=== PATIENT | male | born 1975 | race Caucasian/White ===

== ENCOUNTER 2016-05-24 11:30 | Inpatient (IN) | payer OTHER ==
[2016-05-24 12:34] VITALS: BMI 33.1
--- NOTE | 2016-05-24 15:46 | HP ---
CIWA Score - CIWA Score Nausea/Vomitin Muscle Tremors: 3 Anxiety: 3 Agitation: 3 Paroxysmal Sweats: 3 Orientation: 0-Oriented Tacttile Disturbances: 2-Mild Itch/Numbness/Burn Auditory Disturbances: 0-None Visual Disturbances: 0-None Headache: 0-None Present CIWA-Ar Total Score: 17 Admission ROS BHS - HPI Chief Complaint: I need to stop alcohol and cannabis Allergies/Adverse Reactions: Allergies Allergy/AdvReac Type Severity Reaction Status Date / Time No Known Allergies Allergy Verified 05/24/16 15:31 History of Present Illness: 41 y/o m pt with a h/o chronic etoh dep and cannabis abuse and cannabis dep. Exam Limitations: No Limitations - Ebola screening Have you traveled outside of the country in the last 21 days: No Have you had contact with anyone from an Ebola affected area: No Have you been sick,other than usual withdrawal symptoms: No Do you have a fever: No - Review of Systems Constitutional: Malaise, Night Sweats, Changes in sleep EENT: reports: No Symptoms Reported Respiratory: reports: Shortness of Breath Cardiac: reports: Irregular Heart Rate GI: reports: Nausea : reports: Frequency Musculoskeletal: reports: Muscle Pain Integumentary: reports: Sweating Neuro: reports: Tremors Endocrine: reports: Increased Hunger, Increased Thirst, Increased Urine Hematology: reports: No Symptoms Reported Psychiatric: reports: Agitated, Anxious, Depressed Other Systems: Reviewed and Negative Patient History - Patient Medical History Hx Anemia: No Hx Asthma: No Hx Chronic Obstructive Pulmonary Disease (COPD): No Hx Cancer: No Hx Cardiac Disorders: No Hx Congestive Heart Failure: No Hx Hypertension: No Hx Hypercholesterolemia: No Hx Pacemaker: No HX Cerebrovascular Accident: No Hx Seizures: No Hx Dementia: No Hx Diabetes: Yes (Type II) Hx Gastrointestinal Disorders: No Hx Liver Disease: No Hx Genitourinary Disorders: No Hx Sexually Transmitted Disorders: No Hx Renal Disease (ESRD): No Hx Thyroid Disease: No Hx Human Immunodeficiency Virus (HIV): No (NEGATIVE HX) Hx Hepatitis C: No Hx Depression: Yes Hx Suicide Attempt: No ([place] train tracks [place] 1994) Hx Bipolar Disorder: Yes (on Seroquel, depakote and welbutrin) Hx Schizophrenia: No - Patient Surgical History Past Surgical History: No Hx Neurologic Surgery: No Hx Cataract Extraction: No Hx Cardiac Surgery: No Hx Lung Surgery: No Hx Breast Surgery: No Hx Breast Biopsy: No Hx Abdominal Surgery: No Hx Appendectomy: No Hx Cholecystectomy: No Hx Genitourinary Surgery: No Hx Orthopedic Surgery: No Anesthesia Reaction: No - PPD History Previous Implant?: Yes Documented Results: Negative w/proof Implanted On Prior [facility] Admission?: Yes Date: 04/12/16 Results: 0 MM - Reproductive History Patient is a Female of Child Bearing Age (11 -55 yrs old): No - Smoking Cessation Smoking history: Current every day smoker Have you smoked in the past 12 months: Yes Aproximately how many cigarettes per day: 20 If you are a former smoker, when did you quit?: 15 YRS AGO Hx Chewing Tobacco Use: No Initiated information on smoking cessation: Yes 'Breaking Loose' booklet given: 05/24/16 - Substance & Tx. History Hx Alcohol Use: Yes Hx Substance Use: Yes Substance Use Type: Alcohol, Marijuana Hx Substance Use Treatment: Yes - Substances Abused Alcohol Route: Oral Frequency: Daily Amount used: 3 6PKS BEER Age of first use: 15 Date of Last Use: 05/24/16 Marijuana/Hashish Route: Smoking Frequency: Daily Amount used: 8 JOINTS Age of first use: 17 Date of Last Use: 05/24/16 Family Disease History - Family Disease History Family Disease History: Respiratory: Mother (asthma ) Admission Physical Exam BHS - Vital Signs Vital Signs: Vital Signs - 24 hr 05/24/16 12:32 Temperature 96.7 F L Pulse Rate 111 H Respiratory 18 Rate Blood Pressure 138/84 41 y/o m pt aox3 in nad , diaphoretic, anxious but cooperating with exam. - Physical General Appearance: Yes: Appropriately Dressed, Obese, Tremorous, Irritable, Sweating, Anxious HEENTM: Yes: EOMI, Hearing grossly Normal, Normocephalic, Normal Voice, ELSA Respiratory: Yes: Chest Non-Tender, Lungs Clear, Normal Breath Sounds, No Respiratory Distress Neck: Yes: Supple, Trachea in good position Breast: Yes: Within Normal Limits Cardiology: Yes: Regular Rhythm, S1, S2, Tachycardia Abdominal: Yes: Non Tender, Flat, Soft, Increased Bowel Sounds Genitourinary: Yes: Frequency Back: Yes: Decreased Range of Motion Musculoskeletal: Yes: Back pain Extremities: Yes: Tremors Neurological: Yes: glue maker II-XII NML intact, Fully Oriented, Alert, Normal Response Integumentary: Yes: Diaphoresis Lymphatic: Yes: Within Normal Limits - Diagnostic (1) Alcohol dependence with uncomplicated withdrawal Current Visit: Yes Status: Chronic Comment: . (2) Bipolar 1 disorder Current Visit: Yes Status: Chronic Comment: . (3) Cannabis dependence, uncomplicated Current Visit: Yes Status: Chronic (4) Nicotine dependence Current Visit: Yes Status: Chronic Qualifiers: Nicotine product type: cigarettes Substance use status: uncomplicated Qualified Code(s): F17.210 - Nicotine dependence, cigarettes, uncomplicated Comment: . (5) Diabetes mellitus type 2 in obese Current Visit: Yes Status: Chronic Comment: . (6) Obesity Current Visit: Yes Status: Chronic Qualifiers: Obesity severity: unspecified obesity severity Cleared for Admission S - Detox or Rehab [facility] Level of Care: Medically Managed Detox Regimen/Protocol: Librium [facility] Breath Alcohol Content Breath Alcohol Content: 0.045 Urine Drug Screen - Results Drug Screen Negative: No Urine Drug Screen Results: THC-Marijuana, TCA-Tricyclic Antidepress
[2016-05-24] MEDS ORDERED: diphenhydrAMINE HCL 50 MG CAPSULE PO PRN (16:01)
[2016-05-24] MEDS ORDERED: chlordiazePOXIDE HCL 25 MG CAPSULE PO PRN (16:01)
[2016-05-24] MEDS ORDERED: hydrOXYzine PAMOATE 25 MG CAPSULE (FP) PO PRN (16:01)
[2016-05-24] MEDS ORDERED: P-EPHED 60MG/TRIPROLIDI 2.5MG TABLET PO PRN (16:01)
[2016-05-24] MEDS ORDERED: NICOTINE POLACRILEX 4 MG GUM BC PRN (16:01)
[2016-05-24] MEDS ORDERED: MENTHOL/PHENOL 1 EACH UD MM PRN (16:01)
[2016-05-24] MEDS ORDERED: MAG HYDROX/AL HYDROX/SIMETH 30 ML UNIT-DOSE CUP PO PRN (16:01)
[2016-05-24] MEDS ORDERED: LOPERAMIDE HCL 2 MG CAPSULE PO PRN (16:01)
[2016-05-24] MEDS ORDERED: MAGNESIUM CITRATE 300 ML BOTTLE PO PRN (16:01)
[2016-05-24] MEDS ORDERED: ACETAMINOPHEN 325 MG TABLET (FP) PO PRN (16:01)
[2016-05-24] MEDS ORDERED: guaiFENesin/D-METHORPHAN HB 10 ML UNIT-DOSE CUPS PO PRN (16:01)
[2016-05-24] MEDS ORDERED: IBUPROFEN 400 MG TABLET (FP) PO PRN (16:01)
[2016-05-24] MEDS: chlordiazePOXIDE HCL 25 MG CAPSULE PO SCH ×2 (18:01→22:14)
[2016-05-24 20:54] LABS: URINE APPEARANCE CLEAR; URINE BILIRUBIN NEGATIVE (NEGATIVE); URINE BLOOD NEGATIVE (NEGATIVE); URINE COLOR YELLOW; URINE GLUCOSE (UA) NEGATIVE (NEGATIVE); URINE KETONE 1+ (NEGATIVE); URINE LEUK ESTERASE NEGATIVE (NEGATIVE); URINE NITRITE NEGATIVE (NEGATIVE); URINE UROBILINOGEN NEGATIVE E.U./dl (0.2-1.0)
[2016-05-24 20:57] LABS: URINE PROTEIN 1+ (NEGATIVE)
[2016-05-24 21:07] LABS: URINE BACTERIA RARE /hpf (NONE SEEN); URINE HYALINE CAST 7 /lpf; URINE MUCUS MANY; URINE RBC <1 /hpf (0-3); URINE WBC 1 /hpf (3-5)
[2016-05-24] MEDS: THIAMINE HCL 100 MG TABLET (FP) PO SCH (22:14)
[2016-05-24] MEDS: metFORMIN HCL 500 MG TABLET (FP) PO SCH (23:55)
[2016-05-25] MEDS: chlordiazePOXIDE HCL 25 MG CAPSULE PO SCH ×4 (06:22→22:05)
[2016-05-25] MEDS: metFORMIN HCL 500 MG TABLET (FP) PO SCH ×2 (07:05→17:14)
[2016-05-25] MEDS: INSULIN SLIDING SCALE (NOVOLOG) 1 VIAL SQ SCH ×2 (07:05→17:08)
[2016-05-25] MEDS: sitaGLIPtin PHOSPHATE 100 MG TABLET (FP) PO SCH (07:05)
[2016-05-25 10:10] LABS: MCH 33.2 pg (25.7-33.7); MCHC 33.9 g/dl (32.0-35.9); MEAN CELL VOLUME 97.7 fl (80-96); MEAN PLT VOLUME 8.7 fl (7.5-11.1); PLATELET COUNT 328 K/MM3 (134-434); WHITE BLOOD COUNT 13.5 K/mm3 (4.0-10.0)
[2016-05-25] MEDS: NICOTINE 21 MG/24 HOURS TOPICAL PATCH TD SCH (10:11)
[2016-05-25] MEDS: PRENATAL VITAMINS W/ FOLIC ACID TABLET (FP) PO SCH (10:11)
[2016-05-25 10:21] LABS: ALBUMIN 4.4 g/dl (3.4-5.0); ANION GAP 18 (8-16); CALCIUM 9.7 mg/dL (8.5-10.1); CO2 19 mmol/L (21-32); GLUCOSE,RANDOM 124 mg/dL (74-106)
[2016-05-25 10:25] LABS: ALK PHOS 96 U/L (45-117); BILIRUBIN,TOTAL 0.2 mg/dL (0.2-1.0); CREATININE 0.7 mg/dL (0.7-1.3); SGOT/AST 46 U/L (15-37); SGPT/ALT 65 U/L (12-78); TOT PROT 7.5 g/dl (6.4-8.2)
--- NOTE | 2016-05-25 11:23 | PN ---
S CIWA - CIWA Score Nausea/Vomitin Muscle Tremors: 3 Anxiety: 2 Agitation: 3 Paroxysmal Sweats: 2 Orientation: 0-Oriented Tacttile Disturbances: 0-None Auditory Disturbances: 0-None Visual Disturbances: 2-Mild Sensitivity Headache: 0-None Present CIWA-Ar Total Score: 14 S Progress Note (SOAP) Objective: 05/25/16 11:22 Vital Signs - 24 hr 05/24/16 05/24/16 05/24/16 12:32 17:57 22:24 Temperature 96.7 F L 98.1 F 97.5 F L Pulse Rate 111 H 102 H 96 H Respiratory 18 20 20 Rate Blood Pressure 138/84 128/86 142/83 05/25/16 05/25/16 05/25/16 00:30 03:30 06:51 Temperature 97.3 F L Pulse Rate 72 Respiratory 18 18 18 Rate Blood Pressure 118/72 05/25/16 09:47 Temperature 98.1 F Pulse Rate 92 H Respiratory 18 Rate Blood Pressure 128/69 Laboratory Tests 05/24/16 05/24/16 05/25/16 15:40 19:00 06:00 WBC 13.5 H D RBC 4.59 Hgb 15.2 Hct 44.9 MCV 97.7 H MCHC 33.9 RDW 13.0 Plt Count 328 MPV 8.7 Sodium Potassium Chloride Carbon Dioxide Anion Gap BUN Creatinine Creat Clearance w eGFR POC Glucometer 122 Random Glucose Calcium Total Bilirubin AST ALT Alkaline Phosphatase Total Protein Albumin Urine Color Yellow Urine Appearance Clear Urine pH 5.0 Ur Specific [place] 1.025 Urine Protein 1+ H Urine Glucose (UA) Negative Urine Ketones 1+ H Urine Blood Negative Urine Nitrite Negative Urine Bilirubin Negative Urine Urobilinogen Negative Ur Leukocyte Esterase Negative Urine RBC <1 Urine WBC 1 Ur Epithelial Cells Rare Urine Bacteria Rare Hyaline Casts 7 Urine Mucus Many 05/25/16 05/25/16 06:00 06:20 WBC RBC Hgb Hct MCV MCHC RDW Plt Count MPV Sodium 136 Potassium 4.3 Chloride 99 Carbon Dioxide 19 L Anion Gap 18 H BUN 13 D Creatinine 0.7 Creat Clearance w eGFR > 60 POC Glucometer 128 Random Glucose 124 H D Calcium 9.7 Total Bilirubin 0.2 D AST 46 H D ALT 65 Alkaline Phosphatase 96 Total Protein 7.5 Albumin 4.4 Urine Color Urine Appearance Urine pH Ur Specific [place] Urine Protein Urine Glucose (UA) Urine Ketones Urine Blood Urine Nitrite Urine Bilirubin Urine Urobilinogen Ur Leukocyte Esterase Urine RBC Urine WBC Ur Epithelial Cells Urine Bacteria Hyaline Casts Urine Mucus Assessment: 05/25/16 11:22 ongoing withdrawal leukocytosis Plan: fu labs continue detox protocol
[2016-05-25] MEDS: MAGNESIUM HYDROX 2400MG/30ML ORAL SUSPENSION 30 ML CUP PO PRN (14:10)
[2016-05-25] MEDS ORDERED: DOCUSATE SODIUM 100 MG CAPSULE (FP) PO PRN (14:52)
--- NOTE | 2016-05-25 15:46 | CONSULT ---
[facility] Psychiatric Consult - Data Date of interview: 05/25/16 Admission source: [facility] Identifying data: Readmission to [facility] for this 41 y/o male seeking detox treatment on for alcohol,and marijuana dependence.Patient is single,a father of one,domiciled,unemployed and supported on welfare. Substance Abuse History: - Smoking Cessation. Smoking history: Current every day smoker. Have you smoked in the past 12 months: Yes. Aproximately how many cigarettes per day: 20. If you are a former smoker, when did you quit?: 15 YRS AGO. Hx Chewing Tobacco Use: No. Initiated information on smoking cessation: Yes. 'Breaking Loose' booklet given: 05/24/16. - Substance & Tx. History. Hx Alcohol Use: Yes. Hx Substance Use: Yes. Substance Use Type: Alcohol, Marijuana. Hx Substance Use Treatment: Yes. - Substances Abused. Alcohol. Route: Oral. Frequency: Daily. Amount used: 3 6PKS BEER. Age of first use: 15. Date of Last Use: 05/24/16. Marijuana/Hashish. Route: Smoking. Frequency: Daily. Amount used: 8 JOINTS. Age of first use: 17. Date of Last Use: 05/24/16. Discussed with patient in my interview.He confirmed this pattern of substance abuse. Medical History: Significant for a history of diabetes mellitus and withdrawal- related seizures. Psychiatric History: Patient was admitted to [facility] in [place] ([id number]).Diagnosed with Bipolar Disorder,depressed.Mr Jc is a good and reliable historian.He admits to a history of multiple psychiatric hospitalizations ([facility] and [facility] in [place] in 2013).OPD care is rendered at [facility].Patient is managed by Dr Griffin Mtz on a regimen of paxil 40 mg/day + depakote 1000 mg po bid + seroquel 400 mg po BID.He states that he last took his medications on 05/23/16 prior to this [facility] visit.Noted history of episodes of suicidal ideation but no attempts (patient reports that he [place] jump onto the subway tracks in 1994)." I had strong thoughts and I was hearing voices ".Prompt crisis intervention prevented patient from self-harm.Chronic insomnia is endorsed by patient. Physical/Sexual Abuse/Trauma History: Patient denies. Additional Comment: Urine Drug Screen Results: THC-Marijuana, TCA-Tricyclic Antidepressant.Noted. Mental Status Exam - Mental Status Exam Alert and Oriented to: Time, Place, Person Cognitive Function: Good Patient Appearance: Well Groomed (obese) Mood: Hopeful, Euthymic Affect: Appropriate, Normal Range Patient Behavior: Talkative, Appropriate, Cooperative Speech Pattern: Clear, Appropriate Voice Loudness: Normal Thought Process: Goal Oriented Thought Disorder: Not Present Hallucinations: Denies Suicidal Ideation: Denies Homicidal Ideation: Denies Insight/Judgement: Fair Sleep: Poorly, Difficulty falling asleep (without seroquel) Appetite: Good Muscle strength/Tone: Normal Gait/Station: Normal Psychiatric Findings - Problem List ([place] 1, 2,3) (1) Alcohol dependence with uncomplicated withdrawal Current Visit: Yes Status: Acute Comment: . (2) Cannabis dependence, uncomplicated Current Visit: Yes Status: Acute (3) Nicotine dependence Current Visit: Yes Status: Acute Qualifiers: Nicotine product type: cigarettes Substance use status: uncomplicated Qualified Code(s): F17.210 - Nicotine dependence, cigarettes, uncomplicated Comment: . (4) Bipolar II disorder Current Visit: Yes Status: Chronic Comment: . (5) Diabetes mellitus type 2 in obese Current Visit: Yes Status: Chronic Comment: . (6) Obesity Current Visit: Yes Status: Chronic Qualifiers: Obesity severity: unspecified obesity severity (7) Insomnia Current Visit: Yes Status: Acute - Initial Treatment Plan Initial Treatment Plan: Psychoeducation.Detoxification.Medications :seroquel 200 mg po daily (reduced)/400 mg po hs + paxil 40 mg po daily + depakote 1000 mg po bid.Side effects/benefits of each prescribed drug discussed with the patient.He agrees with this plan of care.Valproic acid level is requested.Labs are reviewed,including liver function tests.Observation.
--- NOTE | 2016-05-25 16:12 | EKG ---
Test Reason : Blood Pressure : / mmHG Vent. Rate : 092 BPM Atrial Rate : 092 BPM P-R Int : 158 ms QRS Dur : 106 ms QT Int : 370 ms P-R-T Axes : 064 068 039 degrees QTc Int : 457 ms NORMAL SINUS RHYTHM NONSPECIFIC ST ABNORMALITY ABNORMAL ECG Confirmed by NOAH KWAN MD ([id number]) on 05/25/2016 4:12:08 PM Referred By: Confirmed By:NOAH KWAN MD
[2016-05-25] MEDS: DIVALPROEX SODIUM 500 MG TABLET E.C. PO SCH (22:05)
[2016-05-25] MEDS: QUEtiapine FUMARATE 400 MG TABLET PO SCH (22:05)
[2016-05-25] MEDS: THIAMINE HCL 100 MG TABLET (FP) PO SCH (22:06)
[2016-05-26] MEDS: chlordiazePOXIDE HCL 25 MG CAPSULE PO SCH ×2 (05:49→10:40)
[2016-05-26] MEDS: INSULIN SLIDING SCALE (NOVOLOG) 1 VIAL SQ SCH ×2 (06:21→16:23)
[2016-05-26] MEDS ORDERED: QUEtiapine FUMARATE 200 MG TABLET PO SCH (10:00)
[2016-05-26 10:24] LABS: BASOPHIL 0.4 % (0-2.0); EOSINOPHIL 5.1 % (0-4.5); MCH 33.6 pg (25.7-33.7); MCHC 34.7 g/dl (32.0-35.9); MEAN CELL VOLUME 96.6 fl (80-96); MEAN PLT VOLUME 8.1 fl (7.5-11.1); NEUTROPHILS 47.4 % (42.8-82.8); PLATELET COUNT 264 K/MM3 (134-434); RDW 13.1 % (11.9-15.9); WHITE BLOOD COUNT 7.2 K/mm3 (4.0-10.0)
[2016-05-26] MEDS: NICOTINE 21 MG/24 HOURS TOPICAL PATCH TD SCH (10:40)
[2016-05-26] MEDS: DIVALPROEX SODIUM 500 MG TABLET E.C. PO SCH ×2 (10:40→22:39)
[2016-05-26] MEDS: PRENATAL VITAMINS W/ FOLIC ACID TABLET (FP) PO SCH (10:40)
[2016-05-26] MEDS: PARoxetine HCL 20 MG TABLET (FP) PO SCH (10:40)
--- NOTE | 2016-05-26 11:18 | PN ---
S CIWA - CIWA Score Nausea/Vomitin Muscle Tremors: 4-Moderate,w/Arms Extend Anxiety: 4-Mod. Anxious/Guarded Agitation: 4-Moderately Restless Paroxysmal Sweats: 3 Orientation: 0-Oriented Tacttile Disturbances: 1-Very Mild Itch/Numbness Auditory Disturbances: 0-None Visual Disturbances: 0-None Headache: 1-Very Mild CIWA-Ar Total Score: 20 BHS Progress Note (SOAP) Subjective: nausea, sweats, interrupted sleep, anxiety, tremors Objective: 05/26/16 11:17 Laboratory Tests 05/24/16 05/24/16 05/25/16 15:40 19:00 06:00 WBC 13.5 H D RBC 4.59 Hgb 15.2 Hct 44.9 MCV 97.7 H MCHC 33.9 RDW 13.0 Plt Count 328 MPV 8.7 Neutrophils % Lymphocytes % Monocytes % Eosinophils % Basophils % Sodium Potassium Chloride Carbon Dioxide Anion Gap BUN Creatinine Creat Clearance w eGFR POC Glucometer 122 Random Glucose Calcium Total Bilirubin AST ALT Alkaline Phosphatase Total Protein Albumin Urine Color Yellow Urine Appearance Clear Urine pH 5.0 Ur Specific [place] 1.025 Urine Protein 1+ H Urine Glucose (UA) Negative Urine Ketones 1+ H Urine Blood Negative Urine Nitrite Negative Urine Bilirubin Negative Urine Urobilinogen Negative Ur Leukocyte Esterase Negative Urine RBC <1 Urine WBC 1 Ur Epithelial Cells Rare Urine Bacteria Rare Hyaline Casts 7 Urine Mucus Many RPR Titer 05/25/16 05/25/16 05/25/16 06:00 06:00 06:20 WBC RBC Hgb Hct MCV MCHC RDW Plt Count MPV Neutrophils % Lymphocytes % Monocytes % Eosinophils % Basophils % Sodium 136 Potassium 4.3 Chloride 99 Carbon Dioxide 19 L Anion Gap 18 H BUN 13 D Creatinine 0.7 Creat Clearance w eGFR > 60 POC Glucometer 128 Random Glucose 124 H D Calcium 9.7 Total Bilirubin 0.2 D AST 46 H D ALT 65 Alkaline Phosphatase 96 Total Protein 7.5 Albumin 4.4 Urine Color Urine Appearance Urine pH Ur Specific [place] Urine Protein Urine Glucose (UA) Urine Ketones Urine Blood Urine Nitrite Urine Bilirubin Urine Urobilinogen Ur Leukocyte Esterase Urine RBC Urine WBC Ur Epithelial Cells Urine Bacteria Hyaline Casts Urine Mucus RPR Titer Nonreactive 05/25/16 05/26/16 05/26/16 16:40 05:48 07:40 WBC 7.2 D RBC 4.36 Hgb 14.6 Hct 42.2 MCV 96.6 H MCHC 34.7 RDW 13.1 Plt Count 264 MPV 8.1 Neutrophils % 47.4 Lymphocytes % 41.3 H Monocytes % 5.8 Eosinophils % 5.1 H Basophils % 0.4 Sodium Potassium Chloride Carbon Dioxide Anion Gap BUN Creatinine Creat Clearance w eGFR POC Glucometer 101 133 Random Glucose Calcium Total Bilirubin AST ALT Alkaline Phosphatase Total Protein Albumin Urine Color Urine Appearance Urine pH Ur Specific [place] Urine Protein Urine Glucose (UA) Urine Ketones Urine Blood Urine Nitrite Urine Bilirubin Urine Urobilinogen Ur Leukocyte Esterase Urine RBC Urine WBC Ur Epithelial Cells Urine Bacteria Hyaline Casts Urine Mucus RPR Titer Assessment: 05/26/16 11:18 withdrawal sx, macrocyotosis Plan: cont detox, fluids
[2016-05-26] MEDS: RANITIDINE HCL 150 MG TABLET (FP) PO SCH ×2 (13:52→22:39)
[2016-05-26] MEDS: chlordiazePOXIDE 5 MG CAPSULE PO SCH ×2 (17:20→22:39)
[2016-05-26] MEDS: sitaGLIPtin PHOSPHATE 100 MG TABLET (FP) PO SCH (18:12)
[2016-05-26] MEDS: metFORMIN HCL 500 MG TABLET (FP) PO SCH ×2 (18:12→22:57)
[2016-05-26] MEDS: QUEtiapine FUMARATE 400 MG TABLET PO SCH (22:39)
[2016-05-26] MEDS: THIAMINE HCL 100 MG TABLET (FP) PO SCH (22:39)
[2016-05-26] MEDS: MAGNESIUM HYDROX 2400MG/30ML ORAL SUSPENSION 30 ML CUP PO PRN (22:43)
[2016-05-27] MEDS: chlordiazePOXIDE 5 MG CAPSULE PO SCH ×2 (05:49→11:20)
[2016-05-27] MEDS: metFORMIN HCL 500 MG TABLET (FP) PO SCH ×2 (08:00→16:57)
[2016-05-27] MEDS: sitaGLIPtin PHOSPHATE 100 MG TABLET (FP) PO SCH (08:00)
[2016-05-27] MEDS: INSULIN SLIDING SCALE (NOVOLOG) 1 VIAL SQ SCH ×2 (08:00→16:57)
[2016-05-27] MEDS ORDERED: QUEtiapine FUMARATE 200 MG TABLET PO SCH (10:00)
[2016-05-27] MEDS: PRENATAL VITAMINS W/ FOLIC ACID TABLET (FP) PO SCH (11:18)
[2016-05-27] MEDS: DIVALPROEX SODIUM 500 MG TABLET E.C. PO SCH ×2 (11:18→22:23)
[2016-05-27] MEDS: PARoxetine HCL 20 MG TABLET (FP) PO SCH (11:19)
[2016-05-27] MEDS: RANITIDINE HCL 150 MG TABLET (FP) PO SCH ×2 (11:19→22:23)
[2016-05-27] MEDS: NICOTINE 21 MG/24 HOURS TOPICAL PATCH TD SCH (11:20)
--- NOTE | 2016-05-27 12:15 | PN ---
BHS Progress Note (SOAP) Subjective: SWEATING,INTERRUPTED SLEEP,RESTLESS Objective: 05/27/16 12:14 Vital Signs - 8 hr 05/27/16 05/27/16 06:00 10:00 Temperature 95.5 F L 97.5 F L Pulse Rate 81 86 Respiratory 18 18 Rate Blood Pressure 107/70 139/69 Laboratory Last Values WBC 7.2 K/mm3 (4.0-10.0) D 05/26/16 07:40 RBC 4.36 M/mm3 (4.00-5.60) 05/26/16 07:40 Hgb 14.6 GM/dL (11.7-16.9) 05/26/16 07:40 Hct 42.2 % (35.4-49) 05/26/16 07:40 MCV 96.6 fl (80-96) H 05/26/16 07:40 MCHC 34.7 g/dl (32.0-35.9) 05/26/16 07:40 RDW 13.1 % (11.9-15.9) 05/26/16 07:40 Plt Count 264 K/MM3 (134-434) 05/26/16 07:40 MPV 8.1 fl (7.5-11.1) 05/26/16 07:40 Neutrophils % 47.4 % (42.8-82.8) 05/26/16 07:40 Lymphocytes % 41.3 % (8-40) H 05/26/16 07:40 Monocytes % 5.8 % (3.8-10.2) 05/26/16 07:40 Eosinophils % 5.1 % (0-4.5) H 05/26/16 07:40 Basophils % 0.4 % (0-2.0) 05/26/16 07:40 Sodium 136 mmol/L (136-145) 05/25/16 06:00 Potassium 4.3 mmol/L (3.5-5.1) 05/25/16 06:00 Chloride 99 mmol/L (98-107) 05/25/16 06:00 Carbon Dioxide 19 mmol/L (21-32) L 05/25/16 06:00 Anion Gap 18 (8-16) H 05/25/16 06:00 BUN 13 mg/dL (7-18) D 05/25/16 06:00 Creatinine 0.7 mg/dL (0.7-1.3) 05/25/16 06:00 Creat Clearance w eGFR > 60 (>60) 05/25/16 06:00 POC Glucometer 121 UNITS (()) 05/27/16 05:52 Random Glucose 124 mg/dL (74-106) H D 05/25/16 06:00 Calcium 9.7 mg/dL (8.5-10.1) 05/25/16 06:00 Total Bilirubin 0.2 mg/dL (0.2-1.0) D 05/25/16 06:00 AST 46 U/L (15-37) H D 05/25/16 06:00 ALT 65 U/L (12-78) 05/25/16 06:00 Alkaline Phosphatase 96 U/L (45-117) 05/25/16 06:00 Total Protein 7.5 g/dl (6.4-8.2) 05/25/16 06:00 Albumin 4.4 g/dl (3.4-5.0) 05/25/16 06:00 Urine Color Yellow 05/24/16 19:00 Urine Appearance Clear 05/24/16 19:00 Urine pH 5.0 (5.0-8.0) 05/24/16 19:00 Ur Specific [place] 1.025 (1.001-1.035) 05/24/16 19:00 Urine Protein 1+ (NEGATIVE) H 05/24/16 19:00 Urine Glucose (UA) Negative (NEGATIVE) 05/24/16 19:00 Urine Ketones 1+ (NEGATIVE) H 05/24/16 19:00 Urine Blood Negative (NEGATIVE) 05/24/16 19:00 Urine Nitrite Negative (NEGATIVE) 05/24/16 19:00 Urine Bilirubin Negative (NEGATIVE) 05/24/16 19:00 Urine Urobilinogen Negative E.U./dl (0.2-1.0) 05/24/16 19:00 Ur Leukocyte Esterase Negative (NEGATIVE) 05/24/16 19:00 Urine RBC <1 /hpf (0-3) 05/24/16 19:00 Urine WBC 1 /hpf (3-5) 05/24/16 19:00 Ur Epithelial Cells Rare /hpf (FEW) 05/24/16 19:00 Urine Bacteria Rare /hpf (NONE SEEN) 05/24/16 19:00 Hyaline Casts 7 /lpf 05/24/16 19:00 Urine Mucus Many 05/24/16 19:00 Valproic Acid 63.525 ug/ml (50-100) 05/26/16 07:40 RPR Titer Nonreactive (NONREACTIVE) 05/25/16 06:00 LABS NOTED Assessment: 05/27/16 12:14 WITHDRAWAL SX. Plan: CONTINUE DETOX
[2016-05-27] MEDS: chlordiazePOXIDE HCL 10 MG CAPSULE PO SCH ×2 (16:57→22:22)
[2016-05-27] MEDS: THIAMINE HCL 100 MG TABLET (FP) PO SCH (22:23)
[2016-05-27] MEDS: QUEtiapine FUMARATE 400 MG TABLET PO SCH (22:23)
[2016-05-27] MEDS: MAGNESIUM HYDROX 2400MG/30ML ORAL SUSPENSION 30 ML CUP PO PRN (22:26)
[2016-05-28] MEDS: chlordiazePOXIDE HCL 10 MG CAPSULE PO SCH (05:07)
[2016-05-28] MEDS: metFORMIN HCL 500 MG TABLET (FP) PO SCH (07:35)
[2016-05-28] MEDS: sitaGLIPtin PHOSPHATE 100 MG TABLET (FP) PO SCH (07:36)
[2016-05-28] MEDS: INSULIN SLIDING SCALE (NOVOLOG) 1 VIAL SQ SCH (07:59)
--- NOTE | 2016-05-28 08:32 | DS ---
[facility] Detox Discharge Summary Admission Date: 05/24/16 Discharge Date: 05/28/16 - History Present History: Alcohol Dependence, Cannabis Dependence - Physical Exam Results Vital Signs: Vital Signs Temperature 97.1 F L 05/28/16 05:11 Pulse Rate 73 05/28/16 05:11 Respiratory Rate 18 05/28/16 05:11 Blood Pressure 130/70 05/28/16 05:11 O2 Sat by Pulse Oximetry (%) - Treatment Hospital Course: Detox Protocol Followed, Detoxed Safely, Responded well, Discharged Condition Good, Rehab Referral Accepted - Medication Discharge Medications: Ambulatory Orders Divalproex [Depakote -] 1,000 mg PO BID #60 tablet.ec 01/31/15 Quetiapine Fumarate [Seroquel -] 400 mg PO BID #60 01/31/15 Metformin HCl [Glucophage -] 1,000 mg PO BID 04/10/16 Paroxetine HCl [Paxil -] 40 mg PO DAILY 04/10/16 Sitagliptin Phosphate [Januvia -] 100 mg PO DAILY@0700 04/10/16 Hydroxyzine Pamoate [Vistaril -] 200 mg PO HS 05/24/16 Divalproex [Depakote -] 1,000 mg PO BID #60 tablet.ec 05/25/16 Paroxetine HCl [Paxil -] 40 mg PO DAILY #30 tablet 05/25/16 Quetiapine Fumarate [Seroquel -] 400 mg PO BID #60 tab 05/25/16 - Diagnosis (1) Alcohol dependence with uncomplicated withdrawal Current Visit: Yes Status: Chronic (2) Cannabis dependence, uncomplicated Current Visit: Yes Status: Chronic (3) Insomnia Current Visit: Yes Status: Acute (4) Nicotine dependence Current Visit: Yes Status: Chronic Qualifiers: Nicotine product type: cigarettes Substance use status: uncomplicated Qualified Code(s): F17.210 - Nicotine dependence, cigarettes, uncomplicated (5) Bipolar 1 disorder Current Visit: Yes Status: Chronic (6) Bipolar II disorder Current Visit: Yes Status: Chronic (7) Diabetes mellitus type 2 in obese Current Visit: Yes Status: Chronic (8) Obesity Current Visit: Yes Status: Chronic Qualifiers: Obesity severity: unspecified obesity severity - AMA Did Patient Leave Against Medical Advice: No
[2016-05-28 10:17] VITALS: BP 130/74; PULSE 92; TEMP 98.6
== END 2016-05-28 09:10 | disposition home or self-care (01) | DRG 775 ==
LOC: YASAS 11:30 → Y6N 15:56
PROVIDERS: ADMIT Internal Medicine; ATTEND Internal Medicine
PROC: HZ2ZZZZ Detoxification Services for Substance Abuse Treatment (ICD-10-PCS; principal; 2016-05-28)
DX: F10.230 Alcohol dependence with withdrawal, uncomplicated (principal); F12.20 Cannabis dependence, uncomplicated; F17.210 Nicotine dependence, cigarettes, uncomplicated; F31.89 Other bipolar disorder; F31.81 Bipolar II disorder; G47.00 Insomnia, unspecified; E11.9 Type 2 diabetes mellitus without complications; Z79.84 Long term (current) use of oral hypoglycemic drugs; E66.9 Obesity, unspecified; Z68.33 Body mass index [BMI] 33.0-33.9, adult
CPT/HCPCS: 36415; 80053; 80164; 81003; 81015; 85025; 85027; 86593; 93005; 93010